=== PATIENT | male | born 1945 | race Caucasian/White ===

== ENCOUNTER 2016-06-05 10:22 | Day surgery (SDC) | payer OTHER, MEDICARE ==
[~2016-06-05 10:22] MED LIST: BACITRACIN 50,000 UNITS/10 ML SYR IRR ONE; BUPIVACAINE/EPI 0.25% 30 ML SDV ONE; DEPO METHYLPREDNISOLONE 40 MG/ML SDV ONE; HYDROmorphONE/DILAUDID 2 MG/ML SYR ONE; LIDOCAINE 1% 5 ML SDV ID PRN; LIDOCAINE 2% 100 MG/5 ML SYR IVP ONE; LR 1,000 ML IV ONE; MIDAZOLAM 2 MG/2 ML VIAL ONE; PHENYLEPHRINE HCL 100 MCG/ML SYR ONE; PROPOFOL/EMULSION 500 MG/50 ML BOTTLE IV ONE; REMIFENTANIL HCL 1 MG VIAL ONE; THROMBIN (RECOMBINANT) 5,000 UNIT VIAL TP ONE; ceFAZolin 2 GM/DEXTROSE 100 ML IV ONE
--- NOTE | 2016-06-05 11:40 | GOP ---
[f rep st] OPERATIVE REPORT DATE OF OPERATION: 06/05/2016 SURGEON: Celi Baptiste MD BREAKDOWN MAN: JADA Hylton. PREOPERATIVE DIAGNOSIS: Lumbar spondylosis, multilevel lumbar stenosis. Prior surgery, right L5-S1. Severe stenosis, left L3-4, left L4-5. Severe left foraminal stenosis, L4-5. Left lateral recess stenosis, L5-S1, left L4 and left L5 radiculopathy. Lumbar degenerative disk disease, L2-3, L3-4, L4-5, L5-S1. POSTOPERATIVE DIAGNOSIS: Lumbar spondylosis, multilevel lumbar stenosis. Prior surgery, right L5-S1 . Severe stenosis, left L3-4, left L4-5. Severe left foraminal stenosis, L4-5. Left lateral recess stenosis, L5-S1, left L4 and left L5 radiculopathy. Lumbar degenerative disk disease, L2-3, L3-4, L4-5, L5-S1. PROCEDURE PERFORMED: Left L3-4, L4-5 hemilaminotomy with a nakul left L4 laminectomy and decompressio n of the left portion of the spinal canal with foraminotomy and medial facetectomy L3-4, L4-5 ([id number]), microscope. FINDINGS: ESTIMATED BLOOD LOSS: 25 cc. INDICATIONS: The patient is a 71-year-old who, many years ago, underwent a right L5-S1 decompression with excellent clinical result, who presented with a left L4 or L5 type pain in the left leg, but no S1 symptoms, and MRI demonstrated really terrible stenosis at L3-4, but also left lateral recess shanique nosis at L4-5 and even left lateral recess stenosis at L5-S1. There was severe left foraminal stenos is at L4-5 as well, and I suggested simple lamis alone on the left at L3-4, L4-5, and we excluded L5- S1 because there just simply were not any S1 symptoms. The possibility that the nerve compression fa r laterally in the neural foramen was causing his symptoms at L4-5 was entertained, but we wanted to try the smallest surgical approach with foraminotomies at that level, but we did not want to consider fusion at this time. An instrumented fusion, he understood, was probably the most successful way to approach the problem, but doing a single-level fusion at L4-5 in the context of the substantial dege nerative disease at L2-3, L3-4, L4-5, L5-S1, would almost certainly obligate him to a more extensive surgery to have a good clinical result, and for these reasons, we wanted to try the smallest approach possible. The risk of continued symptoms, nerve injury, spinal fluid leak was discussed. He unders tood these and wanted to proceed. DESCRIPTION OF PROCEDURE: The patient was taken to the operating room, placed in the supine position . General anesthesia was begun. He was flipped prone onto the Marvel frame. Care was taken to pad all points of contact. His back was sterilely prepped and draped in the usual fashion. We anestheti zed his paraspinal tissues with 0.25% Marcaine with epinephrine, and made a midline incision that was about 3 cm in length. The subcutaneous tissue was dissected using Bovie cautery down to the fascia, and a subperiosteal dissection was made down the inferior lamina of L3, L4, and the rostral lamina o f L5. Self-retaining retractor was placed. A localizing x-ray was taken. We drilled a left L4 nakul laminectomy and left L3-4 hemilaminotomy. We performed minimal medial facetectomy at L3-4, performed a wider medial facetectomy at L4-5. We decompressed the L5 nerve root adjacent to the L5 pedicle, i n the lower L5 pedicle, and followed it all the way up into the neural foramen at L4-5, where we came over the rostral aspect of the L5 pedicle and worked our way into the foramen, removing the medial p ortion of the superior articulating process of L5. Then, we followed the lateral border of the theca l sac up adjacent to the L4 pedicle, into the L3-4 lateral recess, where we performed a central and l eft lateral recess decompression at L3-4. At this level, because of the facet joint anatomy, we perf ormed a somewhat more narrow decompression, but we did achieve excellent decompression of the left la teral recess and the lateral portion of the spinal canal at that level. We then followed the L4 nerv e adjacent to the L4 pedicle, into the L4-5 neural foramen, and there was remarkable stenosis. We us ed the foraminotomy Kerrisons to decompress the foramen, following the L4 nerve root out, way lateral ly into the foramen. We were able to eventually get our 2 mm foraminotomy Kerrison to remove the ros tral portion of the superior articular process of L5 and decompressed the exiting L4 nerve root. We were able to pass the ball-tipped probe all the way out along the L4 root into the medial aspect and the middle portion of the L4-5 foramen itself. It passed freely when we were done with the case. We were happy with our decompression, as we could not really go any further lateral without de-stabiliz ing L4. The L4 pars interarticularis was intact as well as the L4-5 facet joint and L3-4, by virtue of our more narrow decompression there, was also intact. We irrigated with antibiotic saline solutio n, shot a final x-ray demonstrating the extent of our decompression. We then placed some Depo-Medrol over the left L3-4 and L4-5 levels, and then closed the incision in multiple layers using Vicryl sut ures. A running PDS was placed in the skin itself. The patient was reversed from anesthesia, extuba shaheed, and transferred to the recovery room in stable condition. COMPLICATIONS: None. /[id number]/MODL
--- NOTE | 2016-06-05 18:03 | DX ---
Fluoroscopy Greater Than An Hour Clinical Indication: Lumbar laminectomy. Technique: Two spot fluoroscopic images were saved. Fluoroscopy Time: 6.5 seconds. Dose: 4.44 mGy. Findings: Localizing instruments are present at the L3 posterior elements and the L5 vertebral body. Impression: Fluoroscopy provided for lumbar laminectomy.
== END 2016-06-05 12:00 | disposition home or self-care (01) ==
LOC: FSGY 10:22
PROVIDERS: ATTEND Neurological Surgery
PROC: 01NB0ZZ Release Lumbar Nerve, Open Approach (ICD-10-PCS; principal; 2016-06-05 07:30)
DX: M47.26 Other spondylosis with radiculopathy, lumbar region (principal); M51.16 Intervertebral disc disorders with radiculopathy, lumbar region; M48.06 Spinal stenosis, lumbar region
CPT/HCPCS: J0690; J1020; J1170; J2001; J2250; J2370; J2704